=== PATIENT | male | born 1970 | race Two or more races ===

== ENCOUNTER 2017-10-10 20:06 | Emergency (ER) | payer MEDICAID, OTHER ==
[~2017-10-10] VITALS: Ht 167.6 cm; Wt 45.4 kg
[~2017-10-10 20:06] MED LIST: ATENOLOL100 MG ORAL; ATIVAN1 MG ORAL; COGENTIN1 MG PO; COUMADIN5 MG ORAL; COUMADIN7.5 MG ORAL; THORAZINE25 MG PO; VICODIN 5-3001 EACH ORAL; VICODIN 5-5001 EACH PO; ZOLOFT50 MG ORAL
[2017-10-10 20:15] VITALS: BP 122/89
[2017-10-10] MEDS ORDERED: LORazepam 1mg tab ORAL ONE (20:30)
[2017-10-10] MEDS ORDERED: ATIVAN1 MG ORAL (20:46)
[2017-10-10 20:55] VITALS: BP 125/88
[2017-10-10 21:00] VITALS: BP 125/88
--- NOTE | 2017-10-11 14:56 | Emergency Room Report ---
History of Present Illness General Chief Complaint: Altered Mental Status Source: Patient, Family Member, EMS Present Illness HPI 47-year-old male brought to ED for altered level of consciousness. Family at bedside states that she was taking patient to [facility] for evaluation when patient became more altered so she called 911. She states that patient has anxiety and behaves this way when he does not take his Ativan. Ran out of his Ativan. Upon arrival patient is more alert oriented. States he feels anxious. Denies any suicidal homicidal ideation. Denies hearing voices. Denies chest pain shortness of breath. Denies nausea or vomiting. No other aggravating or relieving factors. Denies any other associated symptoms Allergies: Coded Allergies: No Known Allergies (Unverified , 11/11/12) Patient History Past Medical History: DM, HTN, psych hx, other - trach, gtube Social History: Denies: smoking, alcohol use, drug use Immunizations: UTD Reviewed Nursing Documentation: PMH: Agreed; PSxH: Agreed Nursing Documentation-PMH Past Medical History: No History, Except For Hx Hypertension: Yes Hx COPD: Yes - trach no vent Hx Diabetes: Yes Hx Gastrointestinal Problems: Yes - G-tube Review of Systems All Other Systems: negative except mentioned in HPI Physical Exam Vital Signs Date Time Temp Pulse Resp B/P (MAP) Pulse Ox O2 Delivery O2 Flow Rate FiO2 10/10/17 20:06 97.1 108 12 119/92 99 Room Air 97.2 Sp02 EP Interpretation: reviewed, normal General Appearance: no apparent distress, thin Head: normocephalic Eyes: bilateral eye normal inspection, bilateral eye PERRL ENT: hearing grossly normal, normal pharynx, no angioedema, normal voice Neck: tracheotomy Respiratory: chest non-tender, lungs clear, normal breath sounds, speaking full sentences Cardiovascular #1: regular rate, rhythm, no edema Gastrointestinal: other - Gtube Rectal: deferred Genitourinary: no CVA tenderness Musculoskeletal: normal inspection Neurologic: alert, oriented x3, responsive, motor strength/tone normal, sensory intact, speech normal Psychiatric: no suicidal/homicidal ideation, no delusions, depressed affect, anxious Skin: other - blackened fingers, toes bilaterally Lymphatic: normal inspection Medical Decision Making Diagnostic Impression: Primary Impression: Anxiety ER Course Hospital Course 47 yo M presents to ED c/o anxiety Differential diagnoses include: psychosis, anxiety, ETOH Clinical course Patient placed on stretcher. on alarm security or surveillance monitor. After initial history, physical exam reveals male in no acute distress. Patient is very cachectic. Has trach and G-tube. Patient has blackened fingers and toes from adverse reaction to antibiotics years ago. None of these findings are acute. Patient was presenting for anxiety reaction. Patient showing no signs of suicidal or homicidal ideation. No danger to himself or others. Family agrees that if patient receives Ativan he can be safely discharged and she is comfortable taking the patient home. Patient also agrees with plan Patient given Ativan here. On reassessment he is feeling better, maintaining proper mentation. Patient safe for discharge I. I feel this is a highly complex case requiring extensive working including EKG/Rhythm strip, Xray/CT/US, Blood/urine lab work, repeat exams while in ED, and administration of strong opiates/narcotics for pain control, admission to hospital or close patient follow up. Diagnosis - anxiety Stable and discharged to home with Rx Ativan. Followup with PMD. Return to ED if symptoms recur or worse Last Vital Signs Date Time Temp Pulse Resp B/P (MAP) Pulse Ox O2 Delivery O2 Flow Rate FiO2 10/10/17 21:00 97.9 88 15 125/88 100 Room Air 97.9 Status: improved Disposition: HOME, SELF-CARE Condition: Stable Scripts Lorazepam* (ATIVAN*) 1 Mg Tablet 1 MG ORAL BEDTIME, #10 TAB Prov: Jamar Kauffman MD 10/10/17 Referrals: [facility]ERR[facility] (PCP) Patient Instructions: Panic Attacks, [id number] Jamar Kauffman MD Oct 11, 2017 14:56
== END 2017-10-10 21:00 | disposition home or self-care (01) ==
LOC: EDBD 20:06 → EMR 20:30
DX: F41.9 Anxiety disorder, unspecified (principal); R41.82 Altered mental status, unspecified; I10 Essential (primary) hypertension; E11.9 Type 2 diabetes mellitus without complications; J44.9 Chronic obstructive pulmonary disease, unspecified; Z93.1 Gastrostomy status
CPT/HCPCS: 99283